=== PATIENT | female | born 1990 | race American Indian/Alaskan Native ===

== ENCOUNTER 2018-11-04 18:48 | Outpatient (CLI) | payer MEDICAID ==
[2018-11-04] MEDS ORDERED: LACTATED RINGERS 1,000 ML IV ONE (19:56)
[2018-11-04] MEDS ORDERED: BRETHINE ONE (23:18)
[2018-11-04 23:30] LABS: Color,Urine Yellow (Yellow)
[2018-11-04 23:31] LABS: Bacteria,Urine 1+ /HPF (Negative); Bilirubin,Urine NEG (Negative); Blood,Urine NEG (Negative); Hyaline Casts,Urine 1 /LPF; Mucus,Urine 1+ /HPF; Urobilinogen,Urine < 2.0 mg/dL (<2.0)
[2018-11-04] MEDS ORDERED: BRETHINE SUB-Q SCH (23:45)
[2018-11-04 23:53] VITALS: BP 114/60
== END 2018-11-05 00:35 | disposition home or self-care (01) ==
LOC: TRG 18:48
PROVIDERS: ATTEND Obstetrics & Gynecology
DX: O21.2 Late vomiting of pregnancy (principal); O62.9 Abnormality of forces of labor, unspecified; O26.893 Other specified pregnancy related conditions, third trimester; R55 Syncope and collapse; Z3A.32 32 weeks gestation of pregnancy
CPT/HCPCS: 81001; 96360; 96372; J3105; J7120; 59025